=== PATIENT | female | born 1990 | race Caucasian/White ===

== ENCOUNTER 2022-08-11 11:55 | Emergency (ER) | payer MEDICAID ==
[~2022-08-11] VITALS: Ht 170.2 cm; Wt 59.0 kg
[2022-08-11 11:59] VITALS: BP 151/101
--- NOTE | 2022-08-11 11:59 | NUR ---
OFFLOADED TO [facility].
--- NOTE | 2022-08-11 13:45 | NUR ---
PATIENT ELOPED FROM FACILITY. DISCHARGE INSTRUCTIONS NOT GIVEN TO PATIENT. DR. PERAZA NOTIFIED.
== END 2022-08-11 13:45 | disposition left against medical advice (07) ==
LOC: MED 11:55
DX: M54.50 Low back pain, unspecified (principal)
CPT/HCPCS: 99283